=== PATIENT | female | born 1965 | race Asian ===

== ENCOUNTER 2018-01-27 08:06 | Emergency (ER) | payer OTHER ==
[~2018-01-27] VITALS: Ht 157.5 cm; Wt 63.5 kg
[2018-01-27 08:15] VITALS: TEMP 98.2
[2018-01-27 10:38] VITALS: BP 215/111
== END 2018-01-27 10:39 | disposition home or self-care (01) ==
LOC: ED 08:06
DX: Z20.5 Contact with and (suspected) exposure to viral hepatitis (principal); S60.812A Abrasion of left wrist, initial encounter; S00.81XA Abrasion of other part of head, initial encounter; Y04.8XXA Assault by other bodily force, initial encounter; Y92.238 Other place in hospital as the place of occurrence of the external cause
CPT/HCPCS: 36415; 86704; 86803; 87535; 99283; G0432